=== PATIENT | female | born 1975 | race Caucasian/White ===

== ENCOUNTER → 2016-05-12 | Outpatient (CLI) | payer MEDICAID ==
[~2016-05-12] MED LIST: CIPRO 250MG TA250 MG PO; FERROUS SULFAT325 M2 PO; FLEXERIL10 M1 PO; IBUPROFEN 600M600 MG PO; KEFLEX 500MG.500 MG PO; NOMEDS XX; PHENERGAN 25MG.25 M1 PO; PRENATAL1 TA5 PO; ROBAXIN-750750 MG PO; SILVADENE CREAM50 GM TP; TORADOL10 MG PO; TRAMADOL50 M1 PO
[2016-05-17 13:13] LABS: AFP Value 23.9; Gest. Age on Collection Date 16.6; Gestat. Age Based On EDD; Insulin Dep Diabetes NO; Maternal Age At EDD 40.9; Results REPORT; hCG MoM 0.68; hCG Value 22767; uE3 MoM 0.98; uE3 Value 0.95
[2016-05-17 13:14] LABS: DIA MoM 1.39; DSR (Second Trimester) 1 IN 1 IN 276; OSBR Risk 1 IN 1 IN 10000
== END ==
LOC: LAB 14:02
PROVIDERS: Obstetrics & Gynecology
DX: Z36 Encounter for antenatal screening of mother (principal)